=== PATIENT | male | born 1990 ===

== ENCOUNTER 2022-10-13 20:16 | Emergency (ER) | payer SELFPAY ==
[~2022-10-13] VITALS: Ht 172.7 cm; Wt 109.4 kg
[2022-10-13 20:28] VITALS: BP 118/72
[2022-10-13] MEDS ORDERED: ACETAMINOPHEN 325MG TABLET PO ONE (23:30)
[2022-10-13] MEDS ORDERED: IBUPROFEN 400MG TABLET PO ONE (23:30)
[2022-10-13] MEDS ORDERED: BACITRACIN ZINC OINT UDPKT TOP ONE (23:30)
[2022-10-14] MEDS ORDERED: NAPR-681 MT (00:29)
[2022-10-14] MEDS ORDERED: LIDO700A15 TP (00:29)
[2022-10-14] MEDS ORDERED: BO1 TP (00:34)
== END 2022-10-13 23:43 | disposition home or self-care (01) ==
LOC: ER 20:16
DX: S93.402A Sprain of unspecified ligament of left ankle, initial encounter (principal); V49.49XA Driver injured in collision with other motor vehicles in traffic accident, initial encounter; Y93.89 Activity, other specified; Y92.89 Other specified places as the place of occurrence of the external cause; Y99.8 Other external cause status
CPT/HCPCS: 73590; 73610; 99284